=== PATIENT | male | born 1945 | race Caucasian/White ===

== ENCOUNTER 2021-05-31 18:14 | Inpatient (IN) | payer MEDICARE ==
[~2021-05-31] VITALS: Ht 165.1 cm; Wt 81.8 kg
[~2021-05-31 18:14] MED LIST: piperacillin/tazo 3.375gm/50ml 50 ML IV ONE
--- NOTE | 2021-05-31 18:44 | NUR ---
CALLED @18:[address] BAKER TO PLEASE CALL BACK PER DR. COOPER. SAMUEL CALLED BACK @18:47
[2021-05-31] MEDS ORDERED: FLO0.4C PO (19:35)
[2021-05-31] MEDS ORDERED: PANT20TA18 PO (19:35)
[2021-05-31] MEDS ORDERED: FLUT1BLS10 INH (19:35)
[2021-05-31] MEDS ORDERED: ATOR20TA66 PO (19:35)
[2021-05-31] MEDS: normal saline 1000ml 1,000 ML IV SCH (19:50)
[2021-05-31] MEDS ORDERED: morphine 2 MG/ML inj. syringe IV PRN (19:50)
[2021-05-31] MEDS ORDERED: potassium Cl 40MEQ/1/2NS 520ml 520 ML IV PRN ×2 (19:50)
[2021-05-31] MEDS ORDERED: ondansetron/PF 4mg/2ml inj IV PRN (19:50)
[2021-05-31 19:51] LABS: BASOPHILS % (AUTO) 0.1 % (0-1); EOSINOPHILS % (AUTO) 0 % (0-6); HEMATOCRIT 45.4 % (42.0-52.0); HEMOGLOBIN 15.5 g/dl (14.0-17.9); LYMPHOCYTES # (AUTO) 0.3 X10'3 (1.1-4.8); LYMPHOCYTES % (AUTO) 3.7 % (21-51); MEAN CORPUSCULAR HEMOGLOBIN 32.6 PG (27.0-31.0); MEAN CORPUSCULAR HGB CONC 34.1 g/dL (33.0-36.5); MEAN CORPUSCULAR VOLUME 95.6 FL (78-98); MONOCYTES # (AUTO) 0.7 X10'3 (0-0.9); MONOCYTES % (AUTO) 7.2 % (2-12); NEUTROPHILS # (AUTO) 8.2 X10'3 (1.8-7.7); PLATELET COUNT 127 X10'3 (140-440); RED BLOOD COUNT 4.75 X10'6 (4.70-6.10); RED CELL DISTRIBUTION WIDTH 13.9 % (11.5-14.5); WHITE BLOOD COUNT 9.2 X10'3 (4.5-11.0)
[2021-05-31 20:00] LABS: ALANINE AMINOTRANSFERASE 546 U/L (12-78); ALBUMIN 3.7 G/DL (3.4-5.0); ALBUMIN/GLOBULIN RATIO 1.2 (1.1-1.5); ALKALINE PHOSPHATASE 96 IU/L (46-116); ANION GAP 10 (8-16); ASPARTATE AMINO TRANSFERASE 489 U/L (10-37); BILIRUBIN,TOTAL 3.9 MG/DL (0.1-1.0); BLOOD UREA NITROGEN 15 MG/DL (7-18); BUN/CREATININE RATIO 11.5 (5.4-32.0); CHLORIDE 106 MMOL/L (99-107); CREATININE 1.31 MG/DL (0.60-1.10); GLUCOSE 142 MG/DL (70-104); LIPASE 82 U/L (73-393); POTASSIUM 3.9 MMOL/L (3.5-5.1); SODIUM 143 MMOL/L (135-145); TOTAL PROTEIN 6.7 G/DL (6.4-8.2); eGFR 53 ML/MIN
[2021-05-31] MEDS: K and/or MAG REPLACEMENT MC SCH (20:00)
[2021-05-31 20:21] LABS: COLOR,URINE YELLOW (Yellow); UA COLLECTION TYPE URINAL
[2021-05-31 20:22] LABS: CLARITY,URINE CLEAR (Clear); GLUCOSE, URINE NEGATIVE (Neg); KETONES,URINE NEGATIVE (Neg); LEUKOCYTE ESTERASE ,URINE NEGATIVE (Neg); NITRITES, URINE NEGATIVE (Neg); OCCULT BLOOD,URINE NEGATIVE (Neg); PROTEIN,URINE NEGATIVE (Neg)
[2021-06-01] VITALS: BP 94/57
[2021-06-01 06:20] LABS: BASOPHILS % (AUTO) 0.2 % (0-1); EOSINOPHILS % (AUTO) 0.3 % (0-6); HEMATOCRIT 39.7 % (42.0-52.0); HEMOGLOBIN 13.6 g/dl (14.0-17.9); LYMPHOCYTES # (AUTO) 0.5 X10'3 (1.1-4.8); MEAN CORPUSCULAR HEMOGLOBIN 32.4 PG (27.0-31.0); MEAN CORPUSCULAR HGB CONC 34.2 g/dL (33.0-36.5); MEAN CORPUSCULAR VOLUME 94.9 FL (78-98); MEAN PLATELET VOLUME 8.6 FL (7.4-10.4); MONOCYTES # (AUTO) 0.6 X10'3 (0-0.9); MONOCYTES % (AUTO) 6.7 % (2-12); NEUTROPHILS # (AUTO) 7.3 X10'3 (1.8-7.7); NEUTROPHILS % (AUTO) 86.8 % (42-75); PLATELET COUNT 113 X10'3 (140-440); RED BLOOD COUNT 4.19 X10'6 (4.70-6.10); RED CELL DISTRIBUTION WIDTH 13.7 % (11.5-14.5); WHITE BLOOD COUNT 8.4 X10'3 (4.5-11.0)
[2021-06-01 06:27] LABS: ALANINE AMINOTRANSFERASE 512 U/L (12-78); ALKALINE PHOSPHATASE 78 IU/L (46-116); ANION GAP 9 (8-16); ASPARTATE AMINO TRANSFERASE 326 U/L (10-37); BILIRUBIN,TOTAL 5.5 MG/DL (0.1-1.0); BLOOD UREA NITROGEN 18 MG/DL (7-18); BUN/CREATININE RATIO 13.8 (5.4-32.0); CALCIUM 8.5 MG/DL (8.5-10.1); CHLORIDE 108 MMOL/L (99-107); GLUCOSE 112 MG/DL (70-104); POTASSIUM 4.4 MMOL/L (3.5-5.1); SODIUM 142 MMOL/L (135-145); eGFR 54 ML/MIN
[2021-06-01 06:30] LABS: ALBUMIN/GLOBULIN RATIO 1.2 (1.1-1.5); TOTAL PROTEIN 5.6 G/DL (6.4-8.2)
[2021-06-01 08:00] VITALS: BP 93/50
[2021-06-01] MEDS: K and/or MAG REPLACEMENT MC SCH ×2 (08:19→20:00)
[2021-06-01] MEDS: pantoprazole 40 MG vial IV SCH (08:23)
[2021-06-01] MEDS: piperacillin/tazo 3.375gm/50ml 50 ML IV SCH ×4 (08:24→23:59)
[2021-06-01 12:00] VITALS: BP 93/56
[2021-06-01] MEDS: normal saline 1000ml 1,000 ML IV SCH (15:50)
[2021-06-01] MEDS: albuterol 2.5 MG/3 ML nebule NEB SCH ×2 (16:30→20:31)
[2021-06-01 19:30] VITALS: BP 134/53
[2021-06-01] MEDS ORDERED: SALMETEROL INH SCH (20:00)
[2021-06-01] MEDS ORDERED: FLUTICASONE PROPION INH SCH (20:00)
[2021-06-01] MEDS: budesonide 0.5mg/2ml UD nebule IH SCH (20:30)
[2021-06-01] MEDS: morphine 2 MG/ML inj. syringe IV PRN (21:42)
[2021-06-02] VITALS (23 sets, daily range): BP systolic 98–154; BP diastolic 49–78
[2021-06-02] MEDS: albuterol 2.5 MG/3 ML nebule NEB SCH ×4 (03:00→21:55)
[2021-06-02] MEDS: normal saline 1000ml 1,000 ML IV SCH ×3 (03:05→21:55)
[2021-06-02 06:22] LABS: BASOPHILS % (AUTO) 0.3 % (0-1); EOSINOPHILS % (AUTO) 0.6 % (0-6); HEMATOCRIT 39.2 % (42.0-52.0); HEMOGLOBIN 13.2 g/dl (14.0-17.9); LYMPHOCYTES # (AUTO) 0.6 X10'3 (1.1-4.8); LYMPHOCYTES % (AUTO) 13.1 % (21-51); MEAN CORPUSCULAR HEMOGLOBIN 32.5 PG (27.0-31.0); MEAN CORPUSCULAR HGB CONC 33.6 g/dL (33.0-36.5); MEAN CORPUSCULAR VOLUME 96.7 FL (78-98); MEAN PLATELET VOLUME 9.1 FL (7.4-10.4); MONOCYTES # (AUTO) 0.4 X10'3 (0-0.9); MONOCYTES % (AUTO) 10.4 % (2-12); NEUTROPHILS # (AUTO) 3.2 X10'3 (1.8-7.7); NEUTROPHILS % (AUTO) 75.6 % (42-75); PLATELET COUNT 82 X10'3 (140-440); RED BLOOD COUNT 4.06 X10'6 (4.70-6.10); RED CELL DISTRIBUTION WIDTH 14.2 % (11.5-14.5); WHITE BLOOD COUNT 4.3 X10'3 (4.5-11.0)
[2021-06-02 06:46] LABS: ALANINE AMINOTRANSFERASE 370 U/L (12-78); ALBUMIN 2.7 G/DL (3.4-5.0); ALKALINE PHOSPHATASE 80 IU/L (46-116); ANION GAP 9 (8-16); ASPARTATE AMINO TRANSFERASE 178 U/L (10-37); BILIRUBIN,TOTAL 5.6 MG/DL (0.1-1.0); BLOOD UREA NITROGEN 19 MG/DL (7-18); BUN/CREATININE RATIO 12.2 (5.4-32.0); CALCIUM 8.2 MG/DL (8.5-10.1); CHLORIDE 107 MMOL/L (99-107); CREATININE 1.56 MG/DL (0.60-1.10); GLUCOSE 108 MG/DL (70-104); SODIUM 142 MMOL/L (135-145); TOTAL CARBON DIOXIDE 25.6 MMOL/L (24-32); eGFR 44 ML/MIN
[2021-06-02 06:48] LABS: ALBUMIN/GLOBULIN RATIO 0.9 (1.1-1.5); TOTAL PROTEIN 5.7 G/DL (6.4-8.2)
[2021-06-02] MEDS ORDERED: non-formulary drug (Pantoprazole Sodium (Protonix) 1 TAB) PO SCH (08:00)
[2021-06-02] MEDS: K and/or MAG REPLACEMENT MC SCH ×2 (08:00→19:41)
[2021-06-02] MEDS: budesonide 0.5mg/2ml UD nebule IH SCH ×2 (08:06→21:55)
[2021-06-02] MEDS: piperacillin/tazo 3.375gm/50ml 50 ML IV SCH ×3 (09:43→23:57)
[2021-06-02] MEDS: pantoprazole 40 MG vial IV SCH (09:44)
[2021-06-02] MEDS: tamsulosin 0.4mg capsule PO SCH (09:44)
[2021-06-02] MEDS ORDERED: MIDAZolam 1 MG/ML 5ML VIAL ONE (11:39)
[2021-06-02] MEDS ORDERED: LIDOcaine Viscous 15ml cup ONE (11:39)
[2021-06-02] MEDS ORDERED: glucagon, human recombinant 1mg kit ONE ×2 (11:39→13:07)
[2021-06-02] MEDS ORDERED: fentaNYL/PF 50MCG/1 ML 2ML syringe ONE (11:39)
[2021-06-02] MEDS ORDERED: iohexol 300 MG/1 ML 50ml polymer ONE (11:40)
[2021-06-02] MEDS ORDERED: proCHLORperazine 10 MG/2 ml inj ONE (11:48)
--- NOTE | 2021-06-02 18:46 | NUR ---
Problems reprioritized. Patient report given, questions answered & plan of care reviewed with HENRY RN.
[2021-06-03] VITALS (18 sets, daily range): BP systolic 132–162; BP diastolic 55–87
[2021-06-03] MEDS: albuterol 2.5 MG/3 ML nebule NEB SCH ×4 (04:29→21:23)
--- NOTE | 2021-06-03 05:43 | NUR ---
Patient in room [facility]. I have received report from Melodie Almaguer RN and had the opportunity to ask questions and assume patient care.
[2021-06-03 06:34] LABS: BASOPHILS % (AUTO) 0.2 % (0-1); HEMATOCRIT 39.6 % (42.0-52.0); HEMOGLOBIN 13.2 g/dl (14.0-17.9); LYMPHOCYTES # (AUTO) 0.5 X10'3 (1.1-4.8); LYMPHOCYTES % (AUTO) 13.7 % (21-51); MEAN CORPUSCULAR HEMOGLOBIN 32.3 PG (27.0-31.0); MEAN CORPUSCULAR HGB CONC 33.4 g/dL (33.0-36.5); MEAN CORPUSCULAR VOLUME 96.7 FL (78-98); MEAN PLATELET VOLUME 9.3 FL (7.4-10.4); MONOCYTES # (AUTO) 0.3 X10'3 (0-0.9); MONOCYTES % (AUTO) 8.3 % (2-12); NEUTROPHILS # (AUTO) 2.9 X10'3 (1.8-7.7); NEUTROPHILS % (AUTO) 76.8 % (42-75); PLATELET COUNT 85 X10'3 (140-440); RED BLOOD COUNT 4.09 X10'6 (4.70-6.10); RED CELL DISTRIBUTION WIDTH 14.1 % (11.5-14.5); WHITE BLOOD COUNT 3.8 X10'3 (4.5-11.0)
[2021-06-03 07:03] LABS: ALANINE AMINOTRANSFERASE 318 U/L (12-78); ALBUMIN 2.6 G/DL (3.4-5.0); ALBUMIN/GLOBULIN RATIO 0.8 (1.1-1.5); ALKALINE PHOSPHATASE 82 IU/L (46-116); ANION GAP 12 (8-16); ASPARTATE AMINO TRANSFERASE 141 U/L (10-37); BILIRUBIN,TOTAL 3.1 MG/DL (0.1-1.0); BLOOD UREA NITROGEN 13 MG/DL (7-18); BUN/CREATININE RATIO 10.5 (5.4-32.0); CALCIUM 8.1 MG/DL (8.5-10.1); CHLORIDE 109 MMOL/L (99-107); CREATININE 1.24 MG/DL (0.60-1.10); GLUCOSE 103 MG/DL (70-104); SODIUM 144 MMOL/L (135-145); TOTAL CARBON DIOXIDE 23.3 MMOL/L (24-32); TOTAL PROTEIN 5.8 G/DL (6.4-8.2); eGFR 57 ML/MIN
[2021-06-03] MEDS: tamsulosin 0.4mg capsule PO SCH (07:27)
[2021-06-03] MEDS: pantoprazole 40 MG vial IV SCH (07:27)
[2021-06-03] MEDS: piperacillin/tazo 3.375gm/50ml 50 ML IV SCH ×3 (07:27→23:22)
[2021-06-03] MEDS: normal saline 1000ml 1,000 ML IV SCH ×2 (07:29→17:50)
[2021-06-03] MEDS: budesonide 0.5mg/2ml UD nebule IH SCH ×2 (07:51→21:23)
[2021-06-03] MEDS: K and/or MAG REPLACEMENT MC SCH ×2 (08:00→20:00)
[2021-06-03] MEDS ORDERED: INDOCYANINE GREEN 25 MG/10 ML VIAL IV ONE (12:30)
--- NOTE | 2021-06-03 12:40 | NUR ---
Patient precheck list and sugar done, Patient wiped down with 2% chlorhexidine gluconate cloth. patient picked up to OR at around 1230. Patient LBM was 05/31, he stated that he does not want anything for it. Dr Leblanc notified
[2021-06-03] MEDS ORDERED: meperidine/PF 25mg/ml syringe IV PRN ×3 (13:10)
[2021-06-03] MEDS ORDERED: ringers solution, lacted 1,000 ML IV SCH (13:10)
[2021-06-03] MEDS ORDERED: ondansetron/PF 4mg/2ml inj IV PRN ×2 (13:10→15:45)
[2021-06-03] MEDS ORDERED: morphine 2 MG/ML inj. syringe IV PRN (13:10)
[2021-06-03] MEDS ORDERED: morphine 4 MG/ML inj SYRINge IV PRN (13:10)
[2021-06-03] MEDS ORDERED: proCHLORperazine 10 MG/2 ml inj IV PRN (13:10)
[2021-06-03] MEDS ORDERED: BUPIVAcaine 0.5% inj/PF 30 ML ONE (13:34)
[2021-06-03] MEDS ORDERED: fentaNYL /PF 50mcg/ml 5ml ampule ONE (13:46)
[2021-06-03] MEDS ORDERED: propofol inj 20 ML IV ONE (13:46)
[2021-06-03] MEDS ORDERED: midazolam 1 mg/ML 2ml injection ONE (13:46)
[2021-06-03] MEDS ORDERED: rocuronium 10mg/ml inj IV ONE (13:47)
[2021-06-03] MEDS ORDERED: dexamethasone sod phosphate 4mg/ml inj. ONE (14:16)
[2021-06-03] MEDS ORDERED: neostigmine methylsulfate 1 MG/ML 10ml vial ONE (15:18)
[2021-06-03] MEDS ORDERED: ondansetron/PF 4mg/2ml inj ONE (15:18)
[2021-06-03] MEDS ORDERED: glycopyrrolate 0.2mg/ml inj ONE (15:19)
--- NOTE | 2021-06-03 15:46 | NUR ---
Received from OR via SURGICAL BED , accompanied by Anesthesiologist RAJENDRA and report given by Anesthesiolgist. PATIENT WITH 20G PIV IN RIGHT HAND RUNNING LR AT 100. 4 ABDOMINAL BANDAIDS WITH ONE ALPESH DRAIN TO RIGHT SIDE OF ABDOMEN. SEROSANGUENOUS FLUID IN BULB- APPROX 15 CC. VSS. 10L MASK ON WITH 97% SATRUATIONS. Addendum: 06/03/21 at 1552 by Will Nava RN, RN Amended: Links added.
--- NOTE | 2021-06-03 16:36 | NUR ---
ALL CRITERIA FOR DC TO THE FLOOR HAS BEEN MET BY PATIENT. DRESSINGS TO ABDOMEN STILL CDI. RN GT PRESENT TO ACCEPT CARE OF PATIENT AFTER RECEIVING REPORT. PATIENT RESTING IN BED, VSS. CALL LIGHT IN HAND AND BED LOW AND LOCKED. 2 RAILS UP ON BED AND SCDS ON. CARE TURNED OVER TO NATALI DEL REAL. BELONGINGS ALL IN PATIENT ROOM. NEVER BROUGHT ANY TO RECOVERY ROOM. Addendum: 06/03/21 at 1646 by Will Hernandez - NATALI HURST Amended: Links added.
[2021-06-03] MEDS: morphine 2 MG/ML inj. syringe IV PRN (19:20)
--- NOTE | 2021-06-03 19:34 | NUR ---
Patient came back from recovery room at 1634. Patient is stable at this time. post op vital sign taken
[2021-06-04] VITALS: BP 132/80
[2021-06-04] MEDS: normal saline 1000ml 1,000 ML IV SCH ×3 (01:13→20:31)
[2021-06-04] MEDS: albuterol 2.5 MG/3 ML nebule NEB SCH ×4 (03:00→19:03)
[2021-06-04] MEDS: morphine 2 MG/ML inj. syringe IV PRN ×2 (05:52→14:47)
--- NOTE | 2021-06-04 06:12 | NUR ---
Problems reprioritized. Patient report given, questions answered & plan of care reviewed with Melodie HURST.
[2021-06-04 07:01] LABS: BASOPHILS % (AUTO) 0.2 % (0-1); EOSINOPHILS % (AUTO) 0 % (0-6); HEMATOCRIT 38.8 % (42.0-52.0); HEMOGLOBIN 13.3 g/dl (14.0-17.9); LYMPHOCYTES # (AUTO) 0.3 X10'3 (1.1-4.8); LYMPHOCYTES % (AUTO) 5.6 % (21-51); MEAN CORPUSCULAR HEMOGLOBIN 32.9 PG (27.0-31.0); MEAN CORPUSCULAR HGB CONC 34.3 g/dL (33.0-36.5); MEAN CORPUSCULAR VOLUME 95.7 FL (78-98); MEAN PLATELET VOLUME 9.2 FL (7.4-10.4); MONOCYTES # (AUTO) 0.3 X10'3 (0-0.9); MONOCYTES % (AUTO) 5.3 % (2-12); NEUTROPHILS # (AUTO) 5.4 X10'3 (1.8-7.7); NEUTROPHILS % (AUTO) 88.9 % (42-75); PLATELET COUNT 110 X10'3 (140-440); RED BLOOD COUNT 4.06 X10'6 (4.70-6.10); RED CELL DISTRIBUTION WIDTH 13.7 % (11.5-14.5); WHITE BLOOD COUNT 6.1 X10'3 (4.5-11.0)
[2021-06-04 07:14] LABS: ALANINE AMINOTRANSFERASE 272 U/L (12-78); ALBUMIN 2.5 G/DL (3.4-5.0); ALBUMIN/GLOBULIN RATIO 0.7 (1.1-1.5); ALKALINE PHOSPHATASE 74 IU/L (46-116); ANION GAP 9 (8-16); ASPARTATE AMINO TRANSFERASE 112 U/L (10-37); BILIRUBIN,TOTAL 2.1 MG/DL (0.1-1.0); BLOOD UREA NITROGEN 11 MG/DL (7-18); BUN/CREATININE RATIO 10.1 (5.4-32.0); CALCIUM 8.3 MG/DL (8.5-10.1); CHLORIDE 106 MMOL/L (99-107); CREATININE 1.09 MG/DL (0.60-1.10); GLUCOSE 139 MG/DL (70-104); POTASSIUM 4.3 MMOL/L (3.5-5.1); SODIUM 139 MMOL/L (135-145); TOTAL CARBON DIOXIDE 24.2 MMOL/L (24-32); TOTAL PROTEIN 6.1 G/DL (6.4-8.2); eGFR 66 ML/MIN
[2021-06-04] MEDS: budesonide 0.5mg/2ml UD nebule IH SCH ×2 (07:37→19:03)
[2021-06-04 08:00] VITALS: BP 142/80
[2021-06-04] MEDS: K and/or MAG REPLACEMENT MC SCH ×2 (08:00→20:00)
[2021-06-04] MEDS: pantoprazole 40 MG vial IV SCH (08:27)
[2021-06-04] MEDS: piperacillin/tazo 3.375gm/50ml 50 ML IV SCH ×2 (08:27→16:38)
[2021-06-04] MEDS: tamsulosin 0.4mg capsule PO SCH (08:27)
[2021-06-04 12:00] VITALS: BP 122/69
[2021-06-04 20:00] VITALS: BP 143/76
[2021-06-04] MEDS: lactobacillus rhamnosus 10,000 MMU CELLS/CAPSULE PO SCH (20:29)
[2021-06-05] VITALS: BP 132/69
[2021-06-05] MEDS: piperacillin/tazo 3.375gm/50ml 50 ML IV SCH ×3 (00:28→16:36)
[2021-06-05] MEDS: normal saline 1000ml 1,000 ML IV SCH (05:15)
--- NOTE | 2021-06-05 06:30 | NUR ---
Problems reprioritized. Patient report given, questions answered & plan of care reviewed with JOSÉ MIGUEL HURST.
--- NOTE | 2021-06-05 06:45 | NUR ---
Patient in room [facility]. I have received report from ISI SNOWDEN RN and had the opportunity to ask questions and assume patient care.
[2021-06-05 07:00] VITALS: BP 142/80
[2021-06-05 07:08] LABS: BASOPHILS % (AUTO) 0 % (0-1); EOSINOPHILS % (AUTO) 0.1 % (0-6); HEMOGLOBIN 12.7 g/dl (14.0-17.9); LYMPHOCYTES # (AUTO) 0.7 X10'3 (1.1-4.8); LYMPHOCYTES % (AUTO) 9.2 % (21-51); MEAN CORPUSCULAR HEMOGLOBIN 32.5 PG (27.0-31.0); MEAN CORPUSCULAR HGB CONC 34.2 g/dL (33.0-36.5); MEAN CORPUSCULAR VOLUME 94.8 FL (78-98); MEAN PLATELET VOLUME 9.4 FL (7.4-10.4); MONOCYTES # (AUTO) 0.6 X10'3 (0-0.9); MONOCYTES % (AUTO) 8.6 % (2-12); NEUTROPHILS # (AUTO) 5.8 X10'3 (1.8-7.7); NEUTROPHILS % (AUTO) 82.1 % (42-75); PLATELET COUNT 117 X10'3 (140-440); WHITE BLOOD COUNT 7.1 X10'3 (4.5-11.0)
[2021-06-05 07:13] LABS: ALANINE AMINOTRANSFERASE 197 U/L (12-78); ALBUMIN 2.4 G/DL (3.4-5.0); ALBUMIN/GLOBULIN RATIO 0.7 (1.1-1.5); ALKALINE PHOSPHATASE 64 IU/L (46-116); ANION GAP 9 (8-16); ASPARTATE AMINO TRANSFERASE 73 U/L (10-37); BILIRUBIN,TOTAL 1.6 MG/DL (0.1-1.0); BLOOD UREA NITROGEN 12 MG/DL (7-18); BUN/CREATININE RATIO 11.8 (5.4-32.0); CALCIUM 8.1 MG/DL (8.5-10.1); CHLORIDE 106 MMOL/L (99-107); CREATININE 1.02 MG/DL (0.60-1.10); GLUCOSE 100 MG/DL (70-104); POTASSIUM 4.1 MMOL/L (3.5-5.1); SODIUM 139 MMOL/L (135-145); TOTAL CARBON DIOXIDE 23.9 MMOL/L (24-32); TOTAL PROTEIN 5.9 G/DL (6.4-8.2); eGFR 71 ML/MIN
[2021-06-05] MEDS: K and/or MAG REPLACEMENT MC SCH ×2 (08:00→19:40)
[2021-06-05] MEDS: budesonide 0.5mg/2ml UD nebule IH SCH ×2 (08:04→19:01)
[2021-06-05] MEDS: albuterol 2.5 MG/3 ML nebule NEB SCH ×3 (08:04→19:02)
[2021-06-05] MEDS: tamsulosin 0.4mg capsule PO SCH (09:23)
[2021-06-05] MEDS: lactobacillus rhamnosus 10,000 MMU CELLS/CAPSULE PO SCH ×2 (09:23→19:29)
[2021-06-05] MEDS: pantoprazole 40 MG vial IV SCH (09:23)
[2021-06-05 11:00] VITALS: BP 148/77
--- NOTE | 2021-06-05 11:12 | NUR ---
Initial: Pt admitted w/ cholelithiasis per EMR, underwent laparoscopic cholecystectomy 06/03. Pt NPO until 06/03, placed on clear liquids after procedure and advanced to Regular diet today. Pt w/ about 50% intake of 2 meals on Clear liquid diet. No bowel movement per MD note. Will continue to monitor PO trends and make recommendations as appropriate. Recs: 1. Continue Regular diet as tolerated 2. Monitor need for ONS pending PO trends 3. Bowel care per rx 4. Weekly wts Addendum: 06/05/21 at [address] Amended: Links added.
[2021-06-05] MEDS: metoclopramide 5 mg/ml inj IV SCH ×2 (16:36→19:30)
[2021-06-05 18:00] VITALS: BP 145/76
--- NOTE | 2021-06-05 18:50 | NUR ---
Patient in room [facility]. I have received report from Mirna HURST and had the opportunity to ask questions and assume patient care.
[2021-06-05] MEDS: magnesium hydroxide 30ml (MOM) UD suspension PO SCH (19:29)
[2021-06-05] MEDS ORDERED: enoxaparin 40mg/0.4ml syringe SUBCUT SCH (20:00)
[2021-06-06] VITALS: BP 117/66
[2021-06-06] MEDS: piperacillin/tazo 3.375gm/50ml 50 ML IV SCH ×2 (00:45→08:04)
[2021-06-06] MEDS: metoclopramide 5 mg/ml inj IV SCH ×2 (02:10→08:04)
--- NOTE | 2021-06-06 06:37 | NUR ---
Patient in room [facility]. [facility] and had the opportunity to ask questions and assume patient care.
[2021-06-06 07:00] VITALS: BP 137/76
[2021-06-06] MEDS: K and/or MAG REPLACEMENT MC SCH (08:00)
[2021-06-06] MEDS: lactobacillus rhamnosus 10,000 MMU CELLS/CAPSULE PO SCH (08:02)
[2021-06-06] MEDS: magnesium hydroxide 30ml (MOM) UD suspension PO SCH (08:03)
[2021-06-06] MEDS: tamsulosin 0.4mg capsule PO SCH (08:03)
[2021-06-06] MEDS: pantoprazole 40 MG vial IV SCH (08:04)
[2021-06-06] MEDS: budesonide 0.5mg/2ml UD nebule IH SCH (09:00)
[2021-06-06] MEDS: albuterol 2.5 MG/3 ML nebule NEB SCH (09:00)
--- NOTE | 2021-06-06 10:34 | NUR ---
Dr. Leblanc called me not too long ago, he said he put order for discharge routine but he wants me to check with Dr. Green first make sure he is okay to discharge this patient. Will wait for Dr. Green to make rounds at this time. Charge nurse Ananya and [employer] Rodrick were notified about this.
[2021-06-06 11:00] VITALS: BP 136/66
--- NOTE | 2021-06-06 11:10 | NUR ---
Per Dr. Green, patient is okay to be discharge today.
--- NOTE | 2021-06-06 11:14 | NUR ---
Before I called Dr. Green, I asked patient if he needs pain medicine upon discharge, he said "No!"
--- NOTE | 2021-06-06 11:25 | NUR ---
Discharge instructions given to patient. Patient verbalized understanding of all instructions given to him. Peripheral IV catheter removed, tip intact. Instructed patient to ensure he has all his belongings with him before leaving the hospital. Patient said he is attempting to contact his daughter to give him a ride home.
--- NOTE | 2021-06-06 11:49 | NUR ---
Problems reprioritized. Patient report given, questions answered & plan of care reviewed with Daya.
--- NOTE | 2021-06-06 12:05 | NUR ---
Student documentation: I have reviewed and agree with all interventions, assessments performed and documented by Janene Ruvalcaba.
== END 2021-06-06 13:55 | disposition home or self-care (01) | DRG 418 ==
LOC: ER 18:14 → ED HOLD 19:53 → SUR 3N 21:37 → PACU 06-03 15:44 → SUR 3N 06-03 16:32
PROVIDERS: ADMIT Internal Medicine; ATTEND Family Medicine
PROC: 0FJB8ZZ Inspection of Hepatobiliary Duct, Via Natural or Artificial Opening Endoscopic (ICD-10-PCS; 2021-06-02)
PROC: 0FJD8ZZ Inspection of Pancreatic Duct, Via Natural or Artificial Opening Endoscopic (ICD-10-PCS; 2021-06-02)
PROC: BF141ZZ Fluoroscopy of Gallbladder, Bile Ducts and Pancreatic Ducts using Low Osmolar Contrast (ICD-10-PCS; 2021-06-02)
PROC: 8E0W4CZ Robotic Assisted Procedure of Trunk Region, Percutaneous Endoscopic Approach (ICD-10-PCS; 2021-06-03)
PROC: 0FT44ZZ Resection of Gallbladder, Percutaneous Endoscopic Approach (ICD-10-PCS; principal; 2021-06-03 13:46)
DX: K80.63 Calculus of gallbladder and bile duct with acute cholecystitis with obstruction (principal); K56.7 Ileus, unspecified; E78.5 Hyperlipidemia, unspecified; N18.9 Chronic kidney disease, unspecified; K21.9 Gastro-esophageal reflux disease without esophagitis; E27.9 Disorder of adrenal gland, unspecified; E80.6 Other disorders of bilirubin metabolism; R74.01 Elevation of levels of liver transaminase levels; Z20.822 Contact with and (suspected) exposure to COVID-19; N40.0 Benign prostatic hyperplasia without lower urinary tract symptoms; Z79.899 Other long term (current) drug therapy; Z85.46 Personal history of malignant neoplasm of prostate; Z87.891 Personal history of nicotine dependence; Z88.5 Allergy status to narcotic agent; Z88.1 Allergy status to other antibiotic agents
CPT/HCPCS: 36415; 43262; 71045; 74176; 74181; 80053; 81003; 82948; 83690; 85025; 85610; 86301; 86304; 87081; 87635; 93005; 94640; 94760; 99152; 99153; 99285; A4215; A4618; A4620; A6402; A7000; C1769; C9113; G0378; J0780; J1100; J1610; J1650; J2250; J2270; J2405; J2543; J2704; J2710; J2765; J3010; J3490; J7030; J7040; J7120; J7626; Q9967